=== PATIENT | female | born 1960 | race Caucasian/White ===

== ENCOUNTER 2019-01-06 16:56 | Emergency (ER) | payer OTHER ==
[~2019-01-06] VITALS: Ht 149.9 cm; Wt 79.4 kg
[2019-01-06 17:08] VITALS: Ht 149.9 cm; Wt 79.4 kg
[2019-01-06 18:39] VITALS: BP 126/70
== END 2019-01-06 18:39 | disposition home or self-care (01) ==
LOC: ED 16:56
DX: Z76.0 Encounter for issue of repeat prescription (principal); F32.9 Major depressive disorder, single episode, unspecified; E03.9 Hypothyroidism, unspecified

== ENCOUNTER 2019-01-21 23:26 | Emergency (ER) | payer OTHER ==
[~2019-01-21] VITALS: Ht 149.9 cm; Wt 82.1 kg
[2019-01-21 23:38] VITALS: Ht 149.9 cm; Wt 82.1 kg
[2019-01-21 23:56] VITALS: BP 127/69
== END 2019-01-21 23:56 | disposition home or self-care (01) ==
LOC: ED 23:26
DX: Z76.0 Encounter for issue of repeat prescription (principal); F32.9 Major depressive disorder, single episode, unspecified